=== PATIENT | male | born 1965 | race Asian ===

== ENCOUNTER 2016-11-02 23:25 | Outpatient (CLI) | payer OTHER ==
[2016-11-02 23:54] LABS: % BASOPHILS 0.4 % (0.0-2.0); % EOSINOPHILS 2.7 % (0.0-5.0); % LYMPHOCYTES 37.7 % (20.0-50.0); % MONOCYTES 7.1 % (2.0-10.0); % NEUTROPHILS 52.1 % (40.0-80.0); HEMATOCRIT 47.2 % (39.0-49.0); HEMOGLOBIN 16.4 gm/dL (13.2-17.3); MEAN CELL VOLUME 80.9 fl (80-99); MEAN CORPUSCULAR HEMOGLOBIN 28.1 pg (26.0-30.0); MEAN CORPUSCULAR HGB CONC 34.7 pg (28.0-36.0); MEAN PLATELET VOLUME 7.8 fl; NEUTROPHILE ABSOLUTE 3.3 Th/cmm (1.8-8.0); PLATELET COUNT 185 Th/cmm (150-400); RED BLOOD COUNT 5.83 Mil/cmm (4.30-5.70); RED CELL DISTRIBUTION WIDTH 12.1 % (11.5-20.0); WHITE BLOOD COUNT 6.5 Th/cmm (4.8-10.8)
[2016-11-03 00:08] LABS: ALB/GLOB RATIO 1.5 (1.0-1.8); ALKALINE PHOSPHATASE 60 U/L (34-104); ANION GAP 10.3 (7.0-16.0); BILIRUBIN,TOTAL 0.5 mg/dL (0.3-1.0); BUN - UREA NITROGEN 18 mg/dL (7-25); CARBON DIOXIDE 27.8 mEq/L (21.0-31.0); CHLORIDE 103 mEq/L (98-107); CHOLESTEROL 271 mg/dL (<200); CREATININE - SERUM 0.9 mg/dL (0.7-1.3); GLUCOSE 103 mg/dL (70-105); POTASSIUM SERUM 4.1 mEq/L (3.5-5.1); SGOT 27 U/L (13-39); SGPT/ALT 39 U/L (7-52); SODIUM SERUM 137 mEq/L (136-145); TRIGLYCERIDES 212 mg/dL (<150)
[2016-11-03 00:10] LABS: URINE BILIRUBIN NEGATIVE (NEGATIVE); URINE BLOOD NEGATIVE (NEGATIVE); URINE COLOR YELLOW; URINE GLUCOSE (UA) NEGATIVE (NEGATIVE); URINE KETONE NEGATIVE (NEGATIVE); URINE PH 5.5; URINE PROTEIN NEGATIVE (NEGATIVE); URINE UROBILINOGEN 0.2 E.U./dL (0.2 - 1.0)
[2016-11-03 00:11] LABS: URINE BACTERIA NONE SEEN /hpf (NONE SEEN); URINE EPITHELIAL CELLS NONE SEEN /lpf (FEW); URINE RBC NONE SEEN /hpf (0-5); URINE WBC NONE SEEN /hpf (0-5)
[2016-11-08 15:12] LABS: % FREE PSA 19.3 % (()); PROSTATE SPECIFIC ANTIGEN 1.5 ng/mL (0.0-4.0); PSA FREE 0.29 ng/mL; T4 FREE 1.05 ng/dL (0.82-1.77)
== END 2016-11-02 23:31 | disposition home or self-care (01) ==
LOC: RAD 23:25
DX: Z00.00 Encounter for general adult medical examination without abnormal findings (principal); E66.09 Other obesity due to excess calories; E78.00 Pure hypercholesterolemia, unspecified; R05 Cough
CPT/HCPCS: 36415-UA; 80053-TC; 80061-TC; 81001-TC; 81003-TC; 83036-90; 84154-90; 84402-90; 84403-90; 84439-90; 84443-TC; 85025-TC